=== PATIENT | male | born 1935 | race Caucasian/White ===

== ENCOUNTER → 2017-02-08 | Outpatient (CLI) | payer MEDICARE ==
[~2017-02-08] MED LIST: ADVA250A INH; BALANCED SALT SOLN OPHT IRRIG 15 ML BTL ONE; CENTTAB PO; FLUT1SPR5 EACH NARE; NEXI40CA PO; PHENYLEPHRINE HCL 2.5% OPTH SOLN 2 ML BTL ONE; PROPARACAINE HCL 0.5% OPHT SOLN 15 ML BTL ONE; SYSTSOL15 EACH EYE; TROPICAMIDE 1% OPHT SOLN 15 ML BTL ONE; VENTAER INH; ZOCO20TA PO
== END ==
LOC: PHSDC 07:57
PROVIDERS: ATTEND Ophthalmology
DX: H26.492 Other secondary cataract, left eye (principal)

== ENCOUNTER 2017-07-01 04:13 | Emergency (ER) | payer MEDICARE ==
[~2017-07-01] VITALS: Ht 182.9 cm; Wt 91.0 kg
[~2017-07-01 04:13] MED LIST changes: -BALANCED SALT SOLN OPHT IRRIG 15 ML BTL ONE; -PHENYLEPHRINE HCL 2.5% OPTH SOLN 2 ML BTL ONE; -PROPARACAINE HCL 0.5% OPHT SOLN 15 ML BTL ONE; -TROPICAMIDE 1% OPHT SOLN 15 ML BTL ONE
[2017-07-01 04:20] VITALS: BP 160/90; PULSE 93; RESP 20; TEMP 98.7; O2SAT 97
[2017-07-01] MEDS ORDERED: HYDR12.56 PO (04:30)
[2017-07-01] MEDS ORDERED: TEMA30CA PO (04:30)
[2017-07-01] MEDS ORDERED: SODIUM CHLORIDE 0.9% FLUSH 10 ML FLUSH IVF PRN (04:45)
[2017-07-01] MEDS ORDERED: ASPIRIN 81 MG CHEW TAB PO ONE (04:45)
--- NOTE | 2017-07-01 04:45 | PD ---
HPI Chief Complaint: General Weakness Time Seen by Provider: 04:40 Travel History International Travel<30 days: No Contact w/Intl Traveler<30days: No Traveled to known affect area: No History of Present Illness HPI 82-year-old male presents to the emergency department by EMS transport from home for evaluation of generalized weakness with diaphoresis and nausea and feeling his heart pounding. According the patient and he is in good health he occasionally takes HCTZ for swelling of his right ankle was previously on amlodipine for high blood pressure but no other takes amlodipine and has had previous hernia repair appendectomy and rhinoplasty as well as occasionally uses an inhaler for asthma and review of records identify he was on Zocor before but is otherwise in good health. Patient does not smoke cigarettes occasionally drinks alcohol. Patient's had no recent illness and no recent fever. Patient states he went to bed feeling well last night and then awakened approximate 2 hours ago with a warm sweat with mild nausea and feeling like his heart was pounding. EMS was called and according to the machine buffer he was in atrial fibrillation with a rapid ventricular response rate of 170 bpm but prior to administration of any medication he converted back to sinus rhythm with PVC' s. Patient states he feels well at this time has never experienced an attack like this before. Patient denies having any cardiac disease. Patient also denies dyslipidemia or diabetes. Patient states that he did not have near passing out or passing out with this event. Patient is followed by Dr. Bonilla. Patient's never had a stress test. 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) Psychiatric: No Reproductive: No Respiratory: Yes (ASTHMA- HX) Thyroid Disease: No Tetanus Vaccination: < 5 Years Past Surgical History Abdominal Surgery: Yes (APPENDECTOMY- RIGHT INGUINAL HERNIA REPAIR) Appendectomy: Yes Body Medical Devices: NONE Cardiac Surgery: No Ear Surgery: No Endocrine Surgery: No Eye Surgery: Yes (LEFT CATARACT) Genitourinary Surgery: No Joint Replacement: No Oral Surgery: Yes (T&A; SINUS SX) Pacemaker: No Thoracic Surgery: No Tonsillectomy: Yes Other Surgery: Yes Social History Alcohol Use: Yes (OCC) Tobacco Use: No Substance Use: No Allergies-Medications (Allergen,Severity, Reaction): Coded Allergies: No Known Allergies (Unverified , 02/14/17) Reported Meds & Prescriptions Reported Meds & Active Scripts Active Cardizem CD 24 HR (Diltiazem CD 24 HR) 240 Mg Caper 240 Mg PO DAILY Eliquis (Apixaban) 5 Mg Tab 5 Mg PO BID Reported Hydrochlorothiazide 12.5 Mg Tab 12.5 Mg PO DAILY Temazepam 30 Mg Cap 30 Mg PO HS PRN Systane Balance Anabaptist Opth Drops (Propylene Glycol Opth Drops) 0.6% Soln 1 Drop EACH EYE PRN PRN Flonase Nasal Elysian (Fluticasone Nasal Elysian) 50 Mcg/Act Elysian 1 Elysian EACH NARE PRN Advair Diskus Inh (Fluticasone-Salmeterol Inh) 250-50 Mcg/Blist Aer 1 Puff INH PRN Rinse mouth after use. Ventolin Hfa 18 GM Inh (Albuterol Sulfate) 90 Mcg/Act Aer 1 Puff INH PRN PRN Zocor (Simvastatin) 20 Mg Tab 20 Mg PO DAILY Nexium (Esomeprazole DR) 40 Mg Capdr 40 Mg PO DAILY Review of Systems Except as stated in HPI: all other systems reviewed are Neg Physical Exam Narrative GENERAL: Well-developed well-nourished male in no acute distress no respiratory distress SKIN: Warm and dry. HEAD: Normocephalic. EYES: No scleral icterus. No injection or drainage. NECK: Supple, trachea midline. No JVD or lymphadenopathy. CARDIOVASCULAR: Regular rate and rhythm without murmurs, gallops, or rubs. RESPIRATORY: Breath sounds equal bilaterally. No accessory muscle use. GASTROINTESTINAL: Abdomen soft, non-tender, nondistended. MUSCULOSKELETAL: No cyanosis, or edema. BACK: Nontender without obvious deformity. No CVA tenderness. Data Data Last Documented VS Vital Signs Date Time Temp Pulse Resp B/P (MAP) Pulse Ox O2 Delivery O2 Flow Rate FiO2 07/01/17 09:47 07/01/17 06:35 67 18 96 Room Air 07/01/17 04:26 2.00 07/01/17 04:20 98.7 Orders Orders Electrocardiogram (07/01/17 04:40) Basic Metabolic Panel (Bmp) (07/01/17 04:40) Ckmb (Isoenzyme) Profile (07/01/17 04:40) Complete Blood Count With Diff (07/01/17 04:40) Magnesium (Mg) (07/01/17 04:40) Prothrombin Time / Inr (Pt) (07/01/17 04:40) Act Partial Throm Time (Ptt) (07/01/17 04:40) Troponin I (07/01/17 04:40) Chest, Single Ap (07/01/17 04:40) Ecg Monitoring (07/01/17 04:40) Bilateral Bp Monitoring (07/01/17 04:40) Iv Access Insert/Monitor (07/01/17 04:40) Oximetry (07/01/17 04:40) Oxygen Administration (07/01/17 04:40) Aspirin Chew (Aspirin Chew) (07/01/17 04:45) Sodium Chloride 0.9% Flush (Ns Flush) (07/01/17 04:45) Ct Thorax/ Chest W Iv Contrast (07/01/17 ) Iohexol 350 Inj (Omnipaque 350 Inj) (07/01/17 08:03) Labs Laboratory Tests Test 07/01/17 04:50 White Blood Count 6.3 TH/MM3 Red Blood Count 4.60 MIL/MM3 Hemoglobin 14.5 GM/DL Hematocrit 43.2 % Mean Corpuscular Volume 93.9 FL Mean Corpuscular Hemoglobin 31.6 PG Mean Corpuscular Hemoglobin Concent 33.6 % Red Cell Distribution Width 13.8 % Platelet Count 154 TH/MM3 Mean Platelet Volume 10.2 FL Neutrophils (%) (Auto) 53.1 % Lymphocytes (%) (Auto) 35.9 % Monocytes (%) (Auto) 6.5 % Eosinophils (%) (Auto) 3.7 % Basophils (%) (Auto) 0.8 % Neutrophils # (Auto) 3.4 TH/MM3 Lymphocytes # (Auto) 2.3 TH/MM3 Monocytes # (Auto) 0.4 TH/MM3 Eosinophils # (Auto) 0.2 TH/MM3 Basophils # (Auto) 0.0 TH/MM3 CBC Comment DIFF FINAL Differential Comment Prothrombin Time 10.8 SEC Prothromb Time International Ratio 1.0 RATIO Activated Partial Thromboplast Time 26.6 SEC Blood Urea Nitrogen 14 MG/DL Creatinine 1.02 MG/DL Random Glucose 105 MG/DL Calcium Level 9.0 MG/DL Magnesium Level 2.2 MG/DL Sodium Level 144 MEQ/L Potassium Level 3.6 MEQ/L Chloride Level 109 MEQ/L Carbon Dioxide Level 30.1 MEQ/L Anion Gap 5 MEQ/L Estimat Glomerular Filtration Rate 70 ML/MIN Total Creatine Kinase 53 U/L Troponin I 0.02 NG/ML MDM Medical Decision Making Medical Screen Exam Complete: Yes Emergency Medical Condition: Yes Medical Record Reviewed: Yes Interpretation(s) EKG sinus rhythm with frequent PVCs no acute ST segment elevation or injury pattern rate 90 Last Impressions Chest X-Ray 07/01/17 0440 Signed Impressions: Service Date/Time: Monday, July 01, 2017 04:49 - CONCLUSION: Elevation of the left hemidiaphragm and parenchymal opacity in the left lower lung. Recommend further characterization with contrast-enhanced CT thorax. Danny Pratt MD CBC & BMP Diagram 07/01/17 04:50 Calcium Level 9.0, Magnesium Level 2.2 Troponin I 0.02, not elevated; CK 53, not elevated Differential Diagnosis Arrhythmia, electronic disturbance, ACS, [place] Narrative Course patient placed on quality assurance monitor body IV access obtained specimens collected and sent for resulting patient administered aspirin 162 mg Patient remains asymptomatic in the emergency department rare PVCs have decreased in frequency Patient identified to have reported episode of atrial fibrillation paroxysmal without recurrence the emergency department patient is otherwise stable for outpatient management we'll discuss with on-call cardiology initiated patient on calcium channel chele and blood thinning agent Patient identified by chest x-ray to have area of concern for parenchymal opacity left lower lobe with recommendation for CT to be performed Patient's case discussed with on-call cardiology recommends starting patient on Cardizem 240 mg daily and Eliquis In view of recommendation for CT prescriptions have been written for Cardizem and Eliquis; CT has been ordered and follow-up of results by oncoming physician and then patient disposition subsequently care signed over to Dr Hickey Physician Communication Physician Communication call placed to cardiology Diagnosis Primary Impression: Paroxysmal atrial fibrillation Additional Impression: PVCs (premature ventricular contractions) Scripts Diltiazem CD 24 HR (Cardizem CD 24 HR) 240 Mg Caper 240 MG PO DAILY, #30 CAP 0 Refills Prov: Yamileth Mora MD 07/01/17 Apixaban (Eliquis) 5 Mg Tab 5 MG PO BID for Blood Clot Prevention, #60 TAB 0 Refills Prov: Yamileth Mora MD 07/01/17 Yamileth Mora MD Jul 01, 2017 04:45
--- NOTE | 2017-07-01 05:04 | RADRPT ---
EXAM DATE/TIME: 07/01/2017 04:49 [facility] COMPARISON: No previous studies available for comparison. INDICATIONS : Chest pain and weakness MEDICAL HISTORY : None. SURGICAL HISTORY : None. ENCOUNTER: Initial ACUITY: 1 day PAIN SCORE: 6/10 LOCATION: Bilateral chest FINDINGS: There is elevation of the left hemidiaphragm and hazy opacity in the left lower lung. The right lung is clear. The heart is normal size. No blunting of the costophrenic angles. CONCLUSION: Elevation of the left hemidiaphragm and parenchymal opacity in the left lower lung. Recommend furthe r characterization with contrast-enhanced CT thorax. Danny Pratt MD on July 01, 2017 at 5:01 Board Certified Radiologist. This report was verified electronically.
[2017-07-01 05:13] LABS: BICARBONATE 30.1 MEQ/L (21.0-32.0); MAGNESIUM 2.2 MG/DL (1.5-2.5); POTASSIUM 3.6 MEQ/L (3.5-5.1)
[2017-07-01 05:15] LABS: APTT (PATIENT) 26.6 SEC (24.3-30.1); PROTHROMBIN TIME - PATIENT 10.8 SEC (9.8-11.6)
[2017-07-01 05:16] LABS: AUTOMATED NEUTROPHIL # 3.4 TH/MM3 (1.8-7.7); BASOPHIL % 0.8 % (0.0-2.0); EOSINOPHIL # 0.2 TH/MM3 (0-0.4); EOSINOPHIL % 3.7 % (0.0-4.0); HEMATOCRIT 43.2 % (39.0-51.0); HEMO FLAGS DIFF FINAL; LYMPH % 35.9 % (9.0-44.0); LYMPHOCYTE # 2.3 TH/MM3 (1.0-4.8); MEAN CELL VOLUME 93.9 FL (80.0-100.0); MEAN CORPUSCULAR HEMOGLOBIN 31.6 PG (27.0-34.0); MEAN CORPUSCULAR HGB CONC 33.6 % (32.0-36.0); MONO % 6.5 % (0.0-8.0); NEUT % 53.1 % (16.0-70.0); PLATELET COUNT 154 TH/MM3 (150-450); RED CELL DISTRIBUTION WIDTH 13.8 % (11.6-17.2); WHITE BLOOD COUNT 6.3 TH/MM3 (4.0-11.0)
[2017-07-01 06:35] VITALS: BP_SYST 143; BP_SYST 146; BP_DIAS 69; BP_DIAS 70; PULSE 67; RESP 18; O2SAT 96; O2SAT 97
[2017-07-01] MEDS ORDERED: APIX5TAB PO (07:45)
[2017-07-01] MEDS ORDERED: CARD240C6 PO (07:46)
[2017-07-01] MEDS ORDERED: IOHEXOL 350 MG/ML 10 ML VIAL (for RAD DIAG) IV PUSH ONE (08:03)
--- NOTE | 2017-07-01 08:20 | RADRPT ---
EXAM DATE/TIME: 07/01/2017 07:54 [facility] COMPARISON: CHEST SINGLE AP, July 01, 2017, 4:49. INDICATIONS : General weakness and nausea today. IV CONTRAST: 70 cc Omnipaque 350 (iohexol) IV RADIATION DOSE: 5.3 CTDIvol (mGy) MEDICAL HISTORY : Hypertension. Gastroesophageal reflux disease. Carcinoma, basal cell. SURGICAL HISTORY : Tonsillectomy. ENCOUNTER: Initial ACUITY: 1 day PAIN SCALE: 0/10 LOCATION: Bilateral chest TECHNIQUE: Volumetric scanning of the chest was performed. Using automated exposure control and adjustment of t he mA and/or kV according to patient size, radiation dose was kept as low as reasonably achievable to obtain optimal diagnostic quality images. DICOM format image data is available electronically for review and comparison. Follow-up recommendations for detected pulmonary nodules are based at a minimum on nodule size and pa tient risk factors according to Fleischner Society Guidelines. FINDINGS: LUNGS: There is no consolidation or pneumothorax. No concerning pulmonary nodule is visualized. There is a linear opacity in the left lower lobe superior to the elevated left hemidiaphragm. The appearance is characteristic of subsegmental atelectasis. PLEURA: There is no pleural thickening or pleural effusion. MEDIASTINUM: The heart and great vessels demonstrate no acute abnormality. There is coronary artery calcification . There is no mediastinal or hilar lymphadenopathy. AXILLAE: Within normal limits. No lymphadenopathy. SKELETAL: There are degenerative changes of the thoracic spine. MISCELLANEOUS: The visualized upper abdominal organs demonstrate no acute abnormality. Calcified stones are present in the gallbladder. CONCLUSION: 1. The chest x-ray finding represents subsegmental atelectasis in the left lower lobe adjacent to the mildly elevated left hemidiaphragm. Otherwise, no acute pulmonary abnormality is visualized. 2. Nonacute findings include coronary artery calcification and cholelithiasis. Zane Jj MD on July 01, 2017 at 8:15 Board Certified Radiologist. This report was verified electronically.
--- NOTE | 2017-07-01 08:30 | PD ---
Physical Exam Date Seen by Provider: Jul 01, 2017 Time Seen by Provider: 08:27 Narrative 82-year-old male came to the emergency room with history of generalized weakness which was following and episode of sudden onset palpitation and diaphoresis. This was a 5 in the morning. He called EMS and they found him in atrial fibrillation with RVR which converted back to normal sinus rhythm once today were ready to load him up in the ambulance. Patient was seen by the previous ER physician. Please refer to her history and physical for further details. She spoke with the receptionist doctor's office and the plan was to discharge him home with Regino and Ama. However the chest x-ray was read by the radiologist as some possible density in the left lower lobe and a CAT scan was recommended. The sign out to me was to follow-up on the CAT scan report. It is back and it supported as atelectasis in the left lower segment. Otherwise negative. Given that at this point I will discharge him home as per the strong feeling of the previous ER physician that patient could go home. Data Data Last Documented VS Orders Orders Electrocardiogram (07/01/17 04:40) Basic Metabolic Panel (Bmp) (07/01/17 04:40) Ckmb (Isoenzyme) Profile (07/01/17 04:40) Complete Blood Count With Diff (07/01/17 04:40) Magnesium (Mg) (07/01/17 04:40) Prothrombin Time / Inr (Pt) (07/01/17 04:40) Act Partial Throm Time (Ptt) (07/01/17 04:40) Troponin I (07/01/17 04:40) Chest, Single Ap (07/01/17 04:40) Ecg Monitoring (07/01/17 04:40) Bilateral Bp Monitoring (07/01/17 04:40) Iv Access Insert/Monitor (07/01/17 04:40) Oximetry (07/01/17 04:40) Oxygen Administration (07/01/17 04:40) Aspirin Chew (Aspirin Chew) (07/01/17 04:45) Sodium Chloride 0.9% Flush (Ns Flush) (07/01/17 04:45) Ct Thorax/ Chest W Iv Contrast (07/01/17 ) Iohexol 350 Inj (Omnipaque 350 Inj) (07/01/17 08:03) Labs Laboratory Tests Test 07/01/17 04:50 White Blood Count 6.3 TH/MM3 Red Blood Count 4.60 MIL/MM3 Hemoglobin 14.5 GM/DL Hematocrit 43.2 % Mean Corpuscular Volume 93.9 FL Mean Corpuscular Hemoglobin 31.6 PG Mean Corpuscular Hemoglobin Concent 33.6 % Red Cell Distribution Width 13.8 % Platelet Count 154 TH/MM3 Mean Platelet Volume 10.2 FL Neutrophils (%) (Auto) 53.1 % Lymphocytes (%) (Auto) 35.9 % Monocytes (%) (Auto) 6.5 % Eosinophils (%) (Auto) 3.7 % Basophils (%) (Auto) 0.8 % Neutrophils # (Auto) 3.4 TH/MM3 Lymphocytes # (Auto) 2.3 TH/MM3 Monocytes # (Auto) 0.4 TH/MM3 Eosinophils # (Auto) 0.2 TH/MM3 Basophils # (Auto) 0.0 TH/MM3 CBC Comment DIFF FINAL Differential Comment Prothrombin Time 10.8 SEC Prothromb Time International Ratio 1.0 RATIO Activated Partial Thromboplast Time 26.6 SEC Blood Urea Nitrogen 14 MG/DL Creatinine 1.02 MG/DL Random Glucose 105 MG/DL Calcium Level 9.0 MG/DL Magnesium Level 2.2 MG/DL Sodium Level 144 MEQ/L Potassium Level 3.6 MEQ/L Chloride Level 109 MEQ/L Carbon Dioxide Level 30.1 MEQ/L Anion Gap 5 MEQ/L Estimat Glomerular Filtration Rate 70 ML/MIN Total Creatine Kinase 53 U/L Troponin I 0.02 NG/ML MDM Supervised Visit with KATHI: No Diagnosis Primary Impression: Paroxysmal atrial fibrillation Referrals: Alex Agudelo MD 3 days Additional Instruction: Please call the receptionist doctor's office's office was name and number been provided to you. Follow-up with them regarding this new condition. Take the medication as per the prescription direction. One of them is a blood thinner and hence he have to be cautious especially with falls. Return to the ER if the condition worsens or any other new concerns. Scripts Diltiazem CD 24 HR (Cardizem CD 24 HR) 240 Mg Caper 240 MG PO DAILY, #30 CAP 0 Refills Prov: Yamileth Mora MD 07/01/17 Apixaban (Eliquis) 5 Mg Tab 5 MG PO BID for Blood Clot Prevention, #60 TAB 0 Refills Prov: Yamileth Mora MD 07/01/17 Disposition: 01 DISCHARGE HOME Condition: Stable Mike Hickey MD Jul 01, 2017 08:30
--- NOTE | 2017-07-01 16:34 | EKG ---
Date Performed: 07/01/2017 Time Performed: 04:22:49 PTAGE: 82 years EKG: Sinus rhythm WITH FREQUENT VENTRICULAR PREMATURE COMPLEXES Compared to previous tracing, the PVCs are new ABNORMA L RHYTHM ECG PREVIOUS TRACING : 03/04/2014 13.53 DOCTOR: Prabhu Pennington Interpretating Date/Time 07/01/2017 16:34:19
== END 2017-07-01 09:47 | disposition home or self-care (01) ==
LOC: NEPC 04:13
DX: I48.0 Paroxysmal atrial fibrillation (principal); I49.3 Ventricular premature depolarization
CPT/HCPCS: 71010; 71260; 80048; 82550; 83735; 84484; 85025; 85610; 85730; 93005; 99285; Q9967

== ENCOUNTER 2017-08-02 06:30 | Day surgery (SDC) | payer MEDICARE ==
[~2017-08-02] VITALS: Ht 182.9 cm; Wt 88.5 kg
[~2017-08-02 06:30] MED LIST changes: +APIX5TAB PO; +CARD240C6 PO; -CENTTAB PO; +HYDR12.56 PO; +TEMA30CA PO
[2017-08-02] MEDS ORDERED: NS 1000P @30 MLS/HR (KVO) IV SCH (07:15)
[2017-08-02] MEDS ORDERED: ASPIRIN 325 MG TAB PO SCH (07:15)
[2017-08-02] MEDS ORDERED: DILT0.05 PO (07:36)
[2017-08-02] MEDS ORDERED: GABA300C5 PO (07:36)
[2017-08-02] MEDS ORDERED: APIX5TAB PO (07:36)
[2017-08-02 07:41] LABS: AUTOMATED NEUTROPHIL # 3.9 TH/MM3 (1.8-7.7); BASOPHIL % 0.5 % (0.0-2.0); EOSINOPHIL # 0.3 TH/MM3 (0-0.4); EOSINOPHIL % 4.4 % (0.0-4.0); HEMATOCRIT 41.9 % (39.0-51.0); HEMOGLOBIN 14.1 GM/DL (13.0-17.0); MEAN CORPUSCULAR HEMOGLOBIN 31.3 PG (27.0-34.0); MEAN CORPUSCULAR HGB CONC 33.6 % (32.0-36.0); MEAN PLATELET VOLUME 10.3 FL (7.0-11.0); MONOCYTE # 0.5 TH/MM3 (0-0.9); NEUT % 58.1 % (16.0-70.0); PLATELET COUNT 168 TH/MM3 (150-450); RED BLOOD COUNT 4.51 MIL/MM3 (4.50-5.90); RED CELL DISTRIBUTION WIDTH 13.6 % (11.6-17.2); WHITE BLOOD COUNT 6.7 TH/MM3 (4.0-11.0)
[2017-08-02 07:54] LABS: INTERNATIONAL NORMALIZED RATIO 1.1 RATIO
[2017-08-02 07:56] LABS: BICARBONATE 26.8 MEQ/L (21.0-32.0); CALCIUM 8.9 MG/DL (8.5-10.1); CREATININE 0.94 MG/DL (0.60-1.30)
== END 2017-08-02 07:27 | disposition home or self-care (01) ==
LOC: HDOC 06:30 → HDIC 06:30 → HDOC 07:27
PROVIDERS: ATTEND Internal Medicine Cardiovascular Disease
DX: I25.10 Atherosclerotic heart disease of native coronary artery without angina pectoris (principal); I48.91 Unspecified atrial fibrillation; I10 Essential (primary) hypertension; Z53.9 Procedure and treatment not carried out, unspecified reason
CPT/HCPCS: 80048; 85025; 85610; 85730; G0463; J7030; 99211

== ENCOUNTER 2017-08-08 05:41 | Day surgery (SDC) | payer MEDICARE ==
[~2017-08-08] VITALS: Ht 182.9 cm; Wt 88.3 kg
[~2017-08-08 05:41] MED LIST changes: -CARD240C6 PO; +DILT0.05 PO; +GABA300C5 PO; -SYSTSOL15 EACH EYE
[2017-08-08] MEDS ORDERED: IOHEXOL 350 MG/ML 100 ML BTL (for Cath Lab) OTHER ONE (05:42)
[2017-08-08] MEDS ORDERED: ASPIRIN 325 MG TAB PO SCH (06:00)
[2017-08-08] MEDS ORDERED: NS 1000P @30 MLS/HR (KVO) IV SCH (06:00)
[2017-08-08] MEDS ORDERED: ISOS30TA3 PO (06:02)
[2017-08-08] MEDS ORDERED: TRIAM.1%T TOPICAL (06:02)
[2017-08-08 06:19] VITALS: BP 148/77; PULSE 66; RESP 18; TEMP 97.8; O2SAT 96
[2017-08-08 06:35] LABS: AUTOMATED NEUTROPHIL # 3.9 TH/MM3 (1.8-7.7); BASOPHIL % 0.6 % (0.0-2.0); EOSINOPHIL # 0.3 TH/MM3 (0-0.4); EOSINOPHIL % 4.4 % (0.0-4.0); HEMATOCRIT 41.6 % (39.0-51.0); HEMOGLOBIN 14.1 GM/DL (13.0-17.0); LYMPH % 32.1 % (9.0-44.0); LYMPHOCYTE # 2.2 TH/MM3 (1.0-4.8); MEAN CORPUSCULAR HEMOGLOBIN 31.8 PG (27.0-34.0); MEAN CORPUSCULAR HGB CONC 33.8 % (32.0-36.0); MEAN PLATELET VOLUME 10.6 FL (7.0-11.0); MONO % 6.8 % (0.0-8.0); MONOCYTE # 0.5 TH/MM3 (0-0.9); NEUT % 56.1 % (16.0-70.0); PLATELET COUNT 172 TH/MM3 (150-450); RED BLOOD COUNT 4.43 MIL/MM3 (4.50-5.90); RED CELL DISTRIBUTION WIDTH 13.5 % (11.6-17.2); WHITE BLOOD COUNT 6.9 TH/MM3 (4.0-11.0)
[2017-08-08 06:46] LABS: PROTHROMBIN TIME - PATIENT 11.3 SEC (9.8-11.6)
[2017-08-08 06:50] LABS: BICARBONATE 25.9 MEQ/L (21.0-32.0); CALCIUM 8.7 MG/DL (8.5-10.1); CREATININE 0.96 MG/DL (0.60-1.30)
[2017-08-08] MEDS ORDERED: MIDAZOLAM HCL 2 MG/2 ML VIAL ONE (07:19)
--- NOTE | 2017-08-08 08:18 | CATHPROC ---
[employer] HIS Report Study Information Study Number Admission Scheduled Start Study Start [id number] Aug 08 2017 5:41AM 08/08/2017 Aug 08 2017 7:14AM [place] Service Cardiac Catheterization Admit Source Facility Department Other [facility] - [employer] Architect Physician and Clinical Staff Initial Dank Soto Hot Stick Man Mildred Albarran,LORENZA Other cathlab, cathlab Recorder Kenny Wang RCIS(BS) ScrMinal Hernandez RCIS TECH2 Procedures Performed Procedure Location (Site) Vessel Name Angiogram LV LV Ventricle Coronary Angiograms LCA Left Coronary L Heart Cath Equipment Time House Player Description Size Mfg Part Number Used/Scraped TRANSDUCER, TRUWAVE [id number] 07:15 GOMEZ AVELAR * Used W/STOCKCOCK *[id number] [id number] *[id number] [id number] *[id number] PIGTAIL ANG. 145 INFINITI 534-612S CATHETER *[id number] 08:06 DAIG/[employer] ANGIOSEAL, FR6 VIP FR 6 Used *[id number] 07:15 MEDLINE [employer] PACK, CCL CUSTOM * Used *[id number] 07:15 [employer]rise PACER PEN, SKIN DUAL W/ RULER * Used *[id number] 07:15 [employer] SHEATH, FR6.5 PRELUDE 11CM FR 6.5 038ACT Used *[id number] 07:15 [employer] WIRE, 3MMJ .035 180CM 180CM Used *[id number] 07:15 NAMIC MANIFOLD, 4 PORT * Used *[id number] 07:15 NYCOMED OMNIPAQUE, 350 MG, 100ML 100ML [id number] Used 07:53 NYCOMED OMNIPAQUE, 350 MG, 50ML 50ML [id number] Used [id number] 07:15 [employer] MEDICAL BLANKET,WARM AIR CCL * Used *[id number] History: Current Medications Medication Dosage/Unit Route Frequency Last Date/Time Taken Statins (any) ASA History: Allergies Allergy Reaction No Known Allergies History: Risk Factors Family History of Hypertension Dyslipidemia Previous NE Previous Heart Failure Premature CAD Yes Yes No No No Prior Valve Prior PCI Prior CABG Surgery No No No Cerebrovascular Peripheral Artery Chronic Lung On Dialysis Diabetes Disease Disease Disease No No No Yes No History: Symptoms/Diagnosis Selection Items Chest pain History: Stress Tests Stress or Imaging Studies Performed No History: Other Disease Selection Items HTN History: Other Current Smoker No Labs Hgb (g/dl) Hct (%) WBC (l/cumm) Platelets (thousands) 11.60-17.00 35.00-51.00 4.00-11.00 150.00-450.00 14.0 41 6.9 172 Glucose (mg/dl) BUN (mg/dl) Creatinine (mg/dl) BUN:Creatinine (1:x) 74.00-106.00 7.00-18.00 0.50-1.30 10.00-20.00 99 16 0.9 17.8 Na (meq/l) K (meq/l) 136.00-145.00 3.50-5.10 142 3.5 INR (PTT:PT) 0.90-1.10 1 CPK-MB (ng/ML) 0.50-3.60 Not Drawn Medication Medication Total Dose (Bolus/Oral) Medication Total Dosage/Unit 1% XYLOCAINE 10 mL VERSED 2 mg Medications (Bolus/Oral) Medication Time Given Dosage/Unit Administered By Reason VERSED 08/08/2017 7:45:12 AM 2 mg Mildred Albarran 2 mg VERSED given in lab by Mildred Albarran RN in Left Forearm via Peripheral IV. Ordered by Dank Rankin. 1% XYLOCAINE 08/08/2017 7:47:08 AM 10 mL Mildred Albarran 10 mL 1% XYLOCAINE given in lab by Mildred Albarran RN in Right Groin via Subcutaneous. Ordered by Dank Aquino. Medication (Drip) Medication Time Given Dosage/Unit Concentration/Unit Diluent (ml) Solution IV Solutions 08/08/2017 7:14:06 AM 0 mL (IV) 500 NaCl .9 Patient arrived on IV Solutions given by cathlab, cathkevin in Left Forearm via Peripheral IV. Pump/Dri p Flow = 20 ml/hr using NaCl .9. Ordered by Dank Rankin. Initial Case Assessment Cardiovascular HR Rhythm Chest Pain 58 nsr 0 Edema Present Skin color Skin None Normal Warm Dry Circulatory - Right Pulses Dorsalis Pedis Femoral 2 2 Scale (0,1,2,3,4,d) Circulatory - Left Pulses Dorsalis Pedis Femoral 2 2 Scale (0,1,2,3,4,d) Neurological State Oriented to time-place- Alert Moves all extremities person Respiration - General Respiration Rate SpO2 (%) (B/min) 15 96 Chronological Log Time Study Chronological Log 7:13:53 Patient arrived via Bed. 7:13:54 Patient Name, D.O.B, / Armband Verified By R.N. 7:13:54 Consent signed by the physician and the patient and verified by the [employer] Architect staff. 7:13:55 Pre-op and post- op instructions given; patient acknowledges understanding of instructions . 7:13:55 Verbal Stimulation=2 Physical Stimulation=2 Airway=2 Respiration=2 TOTAL=8. (0=absent, 1=l imited, 2=present) 7:13:56 Presedation assessment performed by [employer] Architect RN. 7:13:57 Immediate Presedation assesment performed by physician. 7:13:58 Patient has been NPO for More than 6Hrs. 7:13:58 Skin Breakdown- none per patient 7:14:00 Patient Warmer Placed on the Table. 7:14:01 Disposable Defibrillator Pads Placed On Patient. 7:14:05 [place] Prominences Protected 7:14:06 A # 20 IV was noted in the Forearm (left). Grade = 0 Patient arrived on IV Solutions given by cathlab cathlab in Left Forearm via Peripheral IV. Pum p/Drip Flow = 20 ml/hr 7:14:06 using NaCl .9. Ordered by Dank Rankin. 7:14:07 History and physical on the chart or being dictated. Vitals capture started with the following parameters, Patient=Adult, Interval=5 min, Initial Pre kqtzk=956 mmHg, 7:19:44 Deflation Rate=5 mmHg, Cuff placed on Right Arm Assessment: Initial Case, HR=58 BPM, Rhythm=nsr, Chest Pain=0, Edema=None, Color=Normal, Skin = Warm, Dry Right Pulses: Jaylen Ped=2, Femoral=2 7:19:45 Left Pulses: Jaylen Ped=2, Femoral=2 Neurological: State=Alert, Ox3, OTOOLE Respiration: Resp=15 B/min, SpO2=96 % 7:19:57 Reference ECG taken 7:20:23 HR=58 bpm, PKQX=140/68 mmhg, SpO2=96.0 %, Resp=17 B/min, Pain=0, Claritza=10, Mckeon=2 7:25:20 HR=59 bpm, UASM=043/70 mmhg, SpO2=97.0 %, Resp=16 B/min, Pain=0, Claritza=10, Mckeon=2 7:25:24 Right groin prepped with 2% chlorhexidine, and draped after a 3 min. waiting time. 7:29:12 MD paged 7:30:21 HR=55 bpm, LHYD=794/68 mmhg, SpO2=97.0 %, Resp=14 B/min, Pain=0, Claritza=10, Mckeon=2 7:30:54 Pressure channel 1 zeroed. 7:35:20 HR=54 bpm, RXCL=682/66 mmhg, SpO2=96.0 %, Resp=12 B/min, Pain=0, Claritza=10, Mckeon=2 7:38:37 MD arrived. 7:38:44 Contrast Scanned 7:38:45 Immediate Presedation assesment performed by physician. 7:40:19 HR=56 bpm, ZRRS=426/69 mmhg, SpO2=96.0 %, Resp=14 B/min, Pain=0, Claritza=10, Mckeon=2 Time Out. Correct patient, correct procedure, correct physician, power injector loaded with cont rast with surgical team 7:44:28 present. Time Out Concurred by MD and individual staff in procedure. 7:45:12 2 mg VERSED given in lab by Mildred Albarran, RN in Left Forearm via Peripheral IV. Ordered by Dank Rankin. 7:45:18 HR=64 bpm, PJZW=816/76 mmhg, SpO2=97.0 %, Resp=8 B/min, Pain=0, Claritza=10, Mckeon=2 7:45:32 Case Start 7:45:35 Verbal Stimulation=2 Physical Stimulation=2 Airway=2 Respiration=2 TOTAL=8. (0=absent, 1=opzo ited, 2=present) 10 mL 1% XYLOCAINE given in lab by Mildred Albarran, RN in Right Groin via Subcutaneous. Ordered by Chucho 7:47:08 Dank. 7:50:09 Access site was Right Femoral Artery. 7:50:14 A SHEATH, FR6.5 PRELUDE 11CM FR 6.5 was advanced into the Fem Art (right) using the Percutan eous technique. A PIGTAIL ANG. 145 INFINITI CATHETER FR 6 was advanced over a wire. OMNIPAQUE, 350 MG, 100ML 100 ML was 7:50:19 used for injections. 7:50:23 HR=56 bpm, EWUI=927/65 mmhg, SpO2=95.0 %, Resp=17 B/min, Pain=0, Claritza=10, Mckeon=2 Recorded Pressure: LV, HR=53, Condition=Condition 1 7:52:23 (Left Ventricle) LV 104/2/9 7:52:38 The LV was injected at 10 cc/sec for a total of 30. OMNIPAQUE, 350 MG, 50ML 50ML used. Recorded Pressure: LV, Ao, HR=57, Condition=Condition 1 7:53:46 (Left Ventricle) LV 100/4/11, (Aorta) Ao 105/53/74 7:54:08 Catheter was removed A JL 5.0 INFINITI CATHETER FR 6 was advanced over a wire. OMNIPAQUE, 350 MG, 100ML 100ML was use d for 7:54:08 injections. 7:55:20 HR=54 bpm, GOJW=612/62 mmhg, SpO2=95.0 %, Resp=15 B/min, Pain=0, Claritza=10, Mckeon=2 Recorded Pressure: Ao, HR=54, Condition=Condition 1 7:56:04 (Aorta) Ao 103/51/71 7:56:41 The LCA was injected and visualized at various angles. OMNIPAQUE, 350 MG, 100ML 100ML used. 7:59:22 Catheter was removed A 3DRC INFINITI CATHETER FR 6 was advanced over a wire. OMNIPAQUE, 350 MG, 100ML 100ML was use d for 7:59:23 injections. 8:00:23 HR=51 bpm, ZYOV=266/61 mmhg, SpO2=96.0 %, Resp=15 B/min, Pain=0, Claritza=10, Mckeon=2 8:02:56 Catheter was removed 8:03:21 An injection in the Fem Art (right) was made through the SHEATH, FR6.5 PRELUDE 11CM FR 6.5 . 8:05:22 HR=58 bpm, NVBT=950/63 mmhg, SpO2=98.0 %, Resp=12 B/min, Pain=0, Claritza=10, Mckeon=2 8:06:10 ANGIOSEAL, FR6 VIP FR 6 placement in the Fem Art (right) 8:06:16 Case End 8:06:18 Sterile dressing applied to site 8:06:18 No case complications noted. 8:06:19 Cine recording checked. 8:06:20 Bedside Report will be given. 8:06:22 Implantable Device card placed in patient's chart. 8:06:23 Contrast Scanned 8:06:24 Verbal Stimulation=2 Physical Stimulation=2 Airway=2 Respiration=2 TOTAL=8. (0=absent, 1=l imited, 2=present) 8:06:33 A Left Heart Cath was performed. 8:09:19 Vitals capture stopped. 8:12:02 Patient moved to stretcher End Study - Contrast Media Used In Study Contrast Total Opened (mL) Total Used (mL) Total Wasted (mL) Omnipaque 100 100 0 End Study - Maximum Contrast Load Max Contrast Load (mL) 490.7 End Study - Radiation Exposure Fluoro Time (minutes) 2.3 End Study - Patient Disposition Complications Transferred To Interventional Outcome No [employer] Architect Holding No attempt made
--- NOTE | 2017-08-08 08:18 | CATHPROC ---
[employer] HIS Report Study Information Study Number Admission Scheduled Start Study Start [id number] Aug 08 2017 5:41AM 08/08/2017 Aug 08 2017 7:14AM [place] Service Cardiac Catheterization Admit Source Facility Department Other [facility] - It Generalist Physician and Clinical Staff Initial Dank Soto Tax Accountant Mildred Albarran,LORENZA Other cathlab, cathlab Recorder Kenny Wang RCIS(BS) ScrMinal Hernandez RCIS TECH2 Procedures Performed Procedure Location (Site) Vessel Name Angiogram LV LV Ventricle Coronary Angiograms LCA Left Coronary L Heart Cath Equipment Time Interior Assemblies Developer Prover Description Size Mfg Part Number Used/Scraped TRANSDUCER, TRUWAVE [id number] 07:15 GOMEZ AVELAR * Used W/STOCKCOCK *[id number] [id number] *[id number] [id number] *[id number] PIGTAIL ANG. 145 INFINITI 534-802S CATHETER *[id number] 08:06 DAIG/[employer] ANGIOSEAL, FR6 VIP FR 6 Used *[id number] 07:15 [employer] PACK, CCL CUSTOM * Used *[id number] 07:15 [employer] PACER PEN, SKIN DUAL W/ RULER * Used *[id number]-6F-11- 07:15 [employer] SHEATH, FR6.5 PRELUDE 11CM FR 6.5 038ACT Used *[id number] 07:15 [employer] WIRE, 3MMJ .035 180CM 180CM Used *[id number] 07:15 NAMIC MANIFOLD, 4 PORT * Used *[id number] 07:15 NYCOMED OMNIPAQUE, 350 MG, 100ML 100ML [id number] Used 07:53 NYCOMED OMNIPAQUE, 350 MG, 50ML 50ML [id number] Used [id number] 07:15 [employer] MEDICAL BLANKET,WARM AIR CCL * Used *[id number] History: Current Medications Medication Dosage/Unit Route Frequency Last Date/Time Taken Statins (any) ASA History: Allergies Allergy Reaction No Known Allergies History: Risk Factors Family History of Hypertension Dyslipidemia Previous [place] Previous Heart Failure Premature CAD Yes Yes No No No Prior Valve Prior PCI Prior CABG Surgery No No No Cerebrovascular Peripheral Artery Chronic Lung On Dialysis Diabetes Disease Disease Disease No No No Yes No History: Symptoms/Diagnosis Selection Items Chest pain History: Stress Tests Stress or Imaging Studies Performed No History: Other Disease Selection Items HTN History: Other Current Smoker No Labs Hgb (g/dl) Hct (%) WBC (l/cumm) Platelets (thousands) 11.60-17.00 35.00-51.00 4.00-11.00 150.00-450.00 14.0 41 6.9 172 Glucose (mg/dl) BUN (mg/dl) Creatinine (mg/dl) BUN:Creatinine (1:x) 74.00-106.00 7.00-18.00 0.50-1.30 10.00-20.00 99 16 0.9 17.8 Na (meq/l) K (meq/l) 136.00-145.00 3.50-5.10 142 3.5 INR (PTT:PT) 0.90-1.10 1 CPK-MB (ng/ML) 0.50-3.60 Not Drawn Medication Medication Total Dose (Bolus/Oral) Medication Total Dosage/Unit 1% XYLOCAINE 10 mL VERSED 2 mg Medications (Bolus/Oral) Medication Time Given Dosage/Unit Administered By Reason VERSED 08/08/2017 7:45:12 AM 2 mg Mildred Albarran 2 mg VERSED given in lab by Mildred Albarran RN in Left Forearm via Peripheral IV. Ordered by Dank Rankin. 1% XYLOCAINE 08/08/2017 7:47:08 AM 10 mL Mildred Albarran 10 mL 1% XYLOCAINE given in lab by Mildred Albarran RN in Right Groin via Subcutaneous. Ordered by Dank Aquino. Medication (Drip) Medication Time Given Dosage/Unit Concentration/Unit Diluent (ml) Solution IV Solutions 08/08/2017 7:14:06 AM 0 mL (IV) 500 NaCl .9 Patient arrived on IV Solutions given by cathlab, cathkevin in Left Forearm via Peripheral IV. Pump/Dri p Flow = 20 ml/hr using NaCl .9. Ordered by Dank Rankin. Initial Case Assessment Cardiovascular HR Rhythm Chest Pain 58 nsr 0 Edema Present Skin color Skin None Normal Warm Dry Circulatory - Right Pulses Dorsalis Pedis Femoral 2 2 Scale (0,1,2,3,4,d) Circulatory - Left Pulses Dorsalis Pedis Femoral 2 2 Scale (0,1,2,3,4,d) Neurological State Oriented to time-place- Alert Moves all extremities person Respiration - General Respiration Rate SpO2 (%) (B/min) 15 96 Chronological Log Time Study Chronological Log 7:13:53 Patient arrived via Bed. 7:13:54 Patient Name, D.O.B, / Armband Verified By R.N. 7:13:54 Consent signed by the physician and the patient and verified by the It Generalist staff. 7:13:55 Pre-op and post- op instructions given; patient acknowledges understanding of instructions . 7:13:55 Verbal Stimulation=2 Physical Stimulation=2 Airway=2 Respiration=2 TOTAL=8. (0=absent, 1=l imited, 2=present) 7:13:56 Presedation assessment performed by It Generalist RN. 7:13:57 Immediate Presedation assesment performed by physician. 7:13:58 Patient has been NPO for More than 6Hrs. 7:13:58 Skin Breakdown- none per patient 7:14:00 Patient Warmer Placed on the Table. 7:14:01 Disposable Defibrillator Pads Placed On Patient. 7:14:05 [employer] Prominences Protected 7:14:06 A # 20 IV was noted in the Forearm (left). Grade = 0 Patient arrived on IV Solutions given by cathlab cathlab in Left Forearm via Peripheral IV. Pum p/Drip Flow = 20 ml/hr 7:14:06 using NaCl .9. Ordered by Dank Rankin. 7:14:07 History and physical on the chart or being dictated. Vitals capture started with the following parameters, Patient=Adult, Interval=5 min, Initial Pre bgdrr=870 mmHg, 7:19:44 Deflation Rate=5 mmHg, Cuff placed on Right Arm Assessment: Initial Case, HR=58 BPM, Rhythm=nsr, Chest Pain=0, Edema=None, Color=Normal, Skin = Warm, Dry Right Pulses: Jaylen Ped=2, Femoral=2 7:19:45 Left Pulses: Jaylen Ped=2, Femoral=2 Neurological: State=Alert, Ox3, OTOOLE Respiration: Resp=15 B/min, SpO2=96 % 7:19:57 Reference ECG taken 7:20:23 HR=58 bpm, FFAZ=921/68 mmhg, SpO2=96.0 %, Resp=17 B/min, Pain=0, Claritza=10, Mckeon=2 7:25:20 HR=59 bpm, ALEK=223/70 mmhg, SpO2=97.0 %, Resp=16 B/min, Pain=0, Claritza=10, Mckeon=2 7:25:24 Right groin prepped with 2% chlorhexidine, and draped after a 3 min. waiting time. 7:29:12 MD paged 7:30:21 HR=55 bpm, ASJU=749/68 mmhg, SpO2=97.0 %, Resp=14 B/min, Pain=0, Claritza=10, Mckeon=2 7:30:54 Pressure channel 1 zeroed. 7:35:20 HR=54 bpm, CJXI=737/66 mmhg, SpO2=96.0 %, Resp=12 B/min, Pain=0, Claritza=10, Mckeon=2 7:38:37 MD arrived. 7:38:44 Contrast Scanned 7:38:45 Immediate Presedation assesment performed by physician. 7:40:19 HR=56 bpm, XRQQ=911/69 mmhg, SpO2=96.0 %, Resp=14 B/min, Pain=0, Claritza=10, Mckeon=2 Time Out. Correct patient, correct procedure, correct physician, power injector loaded with cont rast with surgical team 7:44:28 present. Time Out Concurred by MD and individual staff in procedure. 7:45:12 2 mg VERSED given in lab by Mildred Albarran, RN in Left Forearm via Peripheral IV. Ordered by Dank Rankin. 7:45:18 HR=64 bpm, KKXO=092/76 mmhg, SpO2=97.0 %, Resp=8 B/min, Pain=0, Claritza=10, Mckeon=2 7:45:32 Case Start 7:45:35 Verbal Stimulation=2 Physical Stimulation=2 Airway=2 Respiration=2 TOTAL=8. (0=absent, 1=pozo ited, 2=present) 10 mL 1% XYLOCAINE given in lab by Mildred Albarran, RN in Right Groin via Subcutaneous. Ordered by Chucho 7:47:08 Dank. 7:50:09 Access site was Right Femoral Artery. 7:50:14 A SHEATH, FR6.5 PRELUDE 11CM FR 6.5 was advanced into the Fem Art (right) using the Percutan eous technique. A PIGTAIL ANG. 145 INFINITI CATHETER FR 6 was advanced over a wire. OMNIPAQUE, 350 MG, 100ML 100 ML was 7:50:19 used for injections. 7:50:23 HR=56 bpm, XDNE=740/65 mmhg, SpO2=95.0 %, Resp=17 B/min, Pain=0, Claritza=10, Mckeon=2 Recorded Pressure: LV, HR=53, Condition=Condition 1 7:52:23 (Left Ventricle) LV 104/2/9 7:52:38 The LV was injected at 10 cc/sec for a total of 30. OMNIPAQUE, 350 MG, 50ML 50ML used. Recorded Pressure: LV, Ao, HR=57, Condition=Condition 1 7:53:46 (Left Ventricle) LV 100/4/11, (Aorta) Ao 105/53/74 7:54:08 Catheter was removed A JL 5.0 INFINITI CATHETER FR 6 was advanced over a wire. OMNIPAQUE, 350 MG, 100ML 100ML was use d for 7:54:08 injections. 7:55:20 HR=54 bpm, ZOJG=055/62 mmhg, SpO2=95.0 %, Resp=15 B/min, Pain=0, Claritza=10, Mckeon=2 Recorded Pressure: Ao, HR=54, Condition=Condition 1 7:56:04 (Aorta) Ao 103/51/71 7:56:41 The LCA was injected and visualized at various angles. OMNIPAQUE, 350 MG, 100ML 100ML used. 7:59:22 Catheter was removed A 3DRC INFINITI CATHETER FR 6 was advanced over a wire. OMNIPAQUE, 350 MG, 100ML 100ML was use d for 7:59:23 injections. 8:00:23 HR=51 bpm, AYSI=830/61 mmhg, SpO2=96.0 %, Resp=15 B/min, Pain=0, Claritza=10, Mckeon=2 8:02:56 Catheter was removed 8:03:21 An injection in the Fem Art (right) was made through the SHEATH, FR6.5 PRELUDE 11CM FR 6.5 . 8:05:22 HR=58 bpm, ZSKJ=259/63 mmhg, SpO2=98.0 %, Resp=12 B/min, Pain=0, Claritza=10, Mckeon=2 8:06:10 ANGIOSEAL, FR6 VIP FR 6 placement in the Fem Art (right) 8:06:16 Case End 8:06:18 Sterile dressing applied to site 8:06:18 No case complications noted. 8:06:19 Cine recording checked. 8:06:20 Bedside Report will be given. 8:06:22 Implantable Device card placed in patient's chart. 8:06:23 Contrast Scanned 8:06:24 Verbal Stimulation=2 Physical Stimulation=2 Airway=2 Respiration=2 TOTAL=8. (0=absent, 1=l imited, 2=present) 8:06:33 A Left Heart Cath was performed. 8:09:19 Vitals capture stopped. 8:12:02 Patient moved to stretcher End Study - Contrast Media Used In Study Contrast Total Opened (mL) Total Used (mL) Total Wasted (mL) Omnipaque 100 100 0 End Study - Maximum Contrast Load Max Contrast Load (mL) 490.7 End Study - Radiation Exposure Fluoro Time (minutes) 2.3 End Study - Patient Disposition Complications Transferred To Interventional Outcome No It Generalist Holding No attempt made
--- NOTE | 2017-08-08 08:18 | CATHPROC ---
[employer] HIS Report Study Information Study Number Admission Scheduled Start Study Start [id number] Aug 08 2017 5:41AM 08/08/2017 Aug 08 2017 7:14AM [place] [facility] Cardiac Catheterization Admit Source Facility Department Other [facility] - Vulcanizing Press Operator Physician and Clinical Staff Initial Dank [place] [employer] Transit Operator Mildred Albarran,LORENZA Other cathlab, cathlab Recorder Kenny Wang RCIS(BS) ScrMinal Hernandez RCIS TECH2 Procedures Performed Procedure Location (Site) Vessel Name Angiogram LV LV Ventricle Coronary Angiograms LCA Left Coronary L Heart Cath Equipment Time Skill Training Program Coordinator Description Size Mfg Part Number Used/Scraped TRANSDUCER, TRUWAVE [id number] 07:15 GOMEZ AVELAR * Used W/STOCKCOCK *[id number] *[id number] *[id number] PIGTAIL ANG. 145 INFINITI [id number] CATHETER *[id number] 08:06 DAIG/[employer] ANGIOSEAL, FR6 VIP FR 6 Used *[id number] 07:15 MEDLINE INDUSTRIES PACK, CCL CUSTOM * Used *[id number] 07:15 MedEncentive PACER PEN, SKIN DUAL W/ RULER * Used *[id number] 07:15 Assembly SHEATH, FR6.5 PRELUDE 11CM FR 6.5 038ACT Used *[id number] 07:15 Assembly WIRE, 3MMJ .035 180CM 180CM Used *[id number] 07:15 NAMIC MANIFOLD, 4 PORT * Used *[id number] 07:15 NYCOMED OMNIPAQUE, 350 MG, 100ML 100ML [id number] Used 07:53 NYCOMED OMNIPAQUE, 350 MG, 50ML 50ML [id number] Used [id number] 07:15 [employer] MEDICAL BLANKET,WARM AIR CCL * Used *[id number] History: Current Medications Medication Dosage/Unit Route Frequency Last Date/Time Taken Statins (any) ASA History: Allergies Allergy Reaction No Known Allergies History: Risk Factors Family History of Hypertension Dyslipidemia Previous NM Previous Heart Failure Premature CAD Yes Yes No No No Prior Valve Prior PCI Prior CABG Surgery No No No Cerebrovascular Peripheral Artery Chronic Lung On Dialysis Diabetes Disease Disease Disease No No No Yes No History: Symptoms/Diagnosis Selection Items Chest pain History: Stress Tests Stress or Imaging Studies Performed No History: Other Disease Selection Items HTN History: Other Current Smoker No Labs Hgb (g/dl) Hct (%) WBC (l/cumm) Platelets (thousands) 11.60-17.00 35.00-51.00 4.00-11.00 150.00-450.00 14.0 41 6.9 172 Glucose (mg/dl) BUN (mg/dl) Creatinine (mg/dl) BUN:Creatinine (1:x) 74.00-106.00 7.00-18.00 0.50-1.30 10.00-20.00 99 16 0.9 17.8 Na (meq/l) K (meq/l) 136.00-145.00 3.50-5.10 142 3.5 INR (PTT:PT) 0.90-1.10 1 CPK-MB (ng/ML) 0.50-3.60 Not Drawn Medication Medication Total Dose (Bolus/Oral) Medication Total Dosage/Unit 1% XYLOCAINE 10 mL VERSED 2 mg Medications (Bolus/Oral) Medication Time Given Dosage/Unit Administered By Reason VERSED 08/08/2017 7:45:12 AM 2 mg Mildred Albarran 2 mg VERSED given in lab by Mildred Albarran RN in Left Forearm via Peripheral IV. Ordered by Dank Rankin. 1% XYLOCAINE 08/08/2017 7:47:08 AM 10 mL Mildred Albarran 10 mL 1% XYLOCAINE given in lab by Mildred Albarran RN in Right Groin via Subcutaneous. Ordered by Dank Aquino. Medication (Drip) Medication Time Given Dosage/Unit Concentration/Unit Diluent (ml) Solution IV Solutions 08/08/2017 7:14:06 AM 0 mL (IV) 500 NaCl .9 Patient arrived on IV Solutions given by cathlab, cathkevin in Left Forearm via Peripheral IV. Pump/Dri p Flow = 20 ml/hr using NaCl .9. Ordered by Dank Rankin. Initial Case Assessment Cardiovascular HR Rhythm Chest Pain 58 nsr 0 Edema Present Skin color Skin None Normal Warm Dry Circulatory - Right Pulses Dorsalis Pedis Femoral 2 2 Scale (0,1,2,3,4,d) Circulatory - Left Pulses Dorsalis Pedis Femoral 2 2 Scale (0,1,2,3,4,d) Neurological State Oriented to time-place- Alert Moves all extremities person Respiration - General Respiration Rate SpO2 (%) (B/min) 15 96 Chronological Log Time Study Chronological Log 7:13:53 Patient arrived via Bed. 7:13:54 Patient Name, D.O.B, / Armband Verified By R.N. 7:13:54 Consent signed by the physician and the patient and verified by the Vulcanizing Press Operator staff. 7:13:55 Pre-op and post- op instructions given; patient acknowledges understanding of instructions . 7:13:55 Verbal Stimulation=2 Physical Stimulation=2 Airway=2 Respiration=2 TOTAL=8. (0=absent, 1=l imited, 2=present) 7:13:56 Presedation assessment performed by Vulcanizing Press Operator RN. 7:13:57 Immediate Presedation assesment performed by physician. 7:13:58 Patient has been NPO for More than 6Hrs. 7:13:58 Skin Breakdown- none per patient 7:14:00 Patient Warmer Placed on the Table. 7:14:01 Disposable Defibrillator Pads Placed On Patient. 7:14:05 [place] Prominences Protected 7:14:06 A # 20 IV was noted in the Forearm (left). Grade = 0 Patient arrived on IV Solutions given by cathlab cathlab in Left Forearm via Peripheral IV. Pum p/Drip Flow = 20 ml/hr 7:14:06 using NaCl .9. Ordered by Dank Rankin. 7:14:07 History and physical on the chart or being dictated. Vitals capture started with the following parameters, Patient=Adult, Interval=5 min, Initial Pre uvzxb=603 mmHg, 7:19:44 Deflation Rate=5 mmHg, Cuff placed on Right Arm Assessment: Initial Case, HR=58 BPM, Rhythm=nsr, Chest Pain=0, Edema=None, Color=Normal, Skin = Warm, Dry Right Pulses: Jaylen Ped=2, Femoral=2 7:19:45 Left Pulses: Jaylen Ped=2, Femoral=2 Neurological: State=Alert, Ox3, OTOOLE Respiration: Resp=15 B/min, SpO2=96 % 7:19:57 Reference ECG taken 7:20:23 HR=58 bpm, BJYS=496/68 mmhg, SpO2=96.0 %, Resp=17 B/min, Pain=0, Claritza=10, Mckeon=2 7:25:20 HR=59 bpm, FOAF=109/70 mmhg, SpO2=97.0 %, Resp=16 B/min, Pain=0, Claritza=10, Mckeon=2 7:25:24 Right groin prepped with 2% chlorhexidine, and draped after a 3 min. waiting time. 7:29:12 MD paged 7:30:21 HR=55 bpm, GYPN=884/68 mmhg, SpO2=97.0 %, Resp=14 B/min, Pain=0, Claritza=10, Mckeon=2 7:30:54 Pressure channel 1 zeroed. 7:35:20 HR=54 bpm, MWCN=699/66 mmhg, SpO2=96.0 %, Resp=12 B/min, Pain=0, Claritza=10, Mckeon=2 7:38:37 MD arrived. 7:38:44 Contrast Scanned 7:38:45 Immediate Presedation assesment performed by physician. 7:40:19 HR=56 bpm, ZAWH=526/69 mmhg, SpO2=96.0 %, Resp=14 B/min, Pain=0, Claritza=10, Mckeon=2 Time Out. Correct patient, correct procedure, correct physician, power injector loaded with cont rast with surgical team 7:44:28 present. Time Out Concurred by MD and individual staff in procedure. 7:45:12 2 mg VERSED given in lab by Mildred Albarran, RN in Left Forearm via Peripheral IV. Ordered by Dank Rankin. 7:45:18 HR=64 bpm, XXRW=484/76 mmhg, SpO2=97.0 %, Resp=8 B/min, Pain=0, Claritza=10, Mckeon=2 7:45:32 Case Start 7:45:35 Verbal Stimulation=2 Physical Stimulation=2 Airway=2 Respiration=2 TOTAL=8. (0=absent, 1=pozo ited, 2=present) 10 mL 1% XYLOCAINE given in lab by Mildred Albarran, RN in Right Groin via Subcutaneous. Ordered by Chucho 7:47:08 Dank. 7:50:09 Access site was Right Femoral Artery. 7:50:14 A SHEATH, FR6.5 PRELUDE 11CM FR 6.5 was advanced into the Fem Art (right) using the Percutan eous technique. A PIGTAIL ANG. 145 INFINITI CATHETER FR 6 was advanced over a wire. OMNIPAQUE, 350 MG, 100ML 100 ML was 7:50:19 used for injections. 7:50:23 HR=56 bpm, ODQK=249/65 mmhg, SpO2=95.0 %, Resp=17 B/min, Pain=0, Claritza=10, Mckeon=2 Recorded Pressure: LV, HR=53, Condition=Condition 1 7:52:23 (Left Ventricle) LV 104/2/9 7:52:38 The LV was injected at 10 cc/sec for a total of 30. OMNIPAQUE, 350 MG, 50ML 50ML used. Recorded Pressure: LV, Ao, HR=57, Condition=Condition 1 7:53:46 (Left Ventricle) LV 100/4/11, (Aorta) Ao 105/53/74 7:54:08 Catheter was removed A JL 5.0 INFINITI CATHETER FR 6 was advanced over a wire. OMNIPAQUE, 350 MG, 100ML 100ML was use d for 7:54:08 injections. 7:55:20 HR=54 bpm, FVYI=645/62 mmhg, SpO2=95.0 %, Resp=15 B/min, Pain=0, Claritza=10, Mckeon=2 Recorded Pressure: Ao, HR=54, Condition=Condition 1 7:56:04 (Aorta) Ao 103/51/71 7:56:41 The LCA was injected and visualized at various angles. OMNIPAQUE, 350 MG, 100ML 100ML used. 7:59:22 Catheter was removed A 3DRC INFINITI CATHETER FR 6 was advanced over a wire. OMNIPAQUE, 350 MG, 100ML 100ML was use d for 7:59:23 injections. 8:00:23 HR=51 bpm, EQIC=809/61 mmhg, SpO2=96.0 %, Resp=15 B/min, Pain=0, Claritza=10, Mckeon=2 8:02:56 Catheter was removed 8:03:21 An injection in the Fem Art (right) was made through the SHEATH, FR6.5 PRELUDE 11CM FR 6.5 . 8:05:22 HR=58 bpm, GUXE=010/63 mmhg, SpO2=98.0 %, Resp=12 B/min, Pain=0, Claritza=10, Mckeon=2 8:06:10 ANGIOSEAL, FR6 VIP FR 6 placement in the Fem Art (right) 8:06:16 Case End 8:06:18 Sterile dressing applied to site 8:06:18 No case complications noted. 8:06:19 Cine recording checked. 8:06:20 Bedside Report will be given. 8:06:22 Implantable Device card placed in patient's chart. 8:06:23 Contrast Scanned 8:06:24 Verbal Stimulation=2 Physical Stimulation=2 Airway=2 Respiration=2 TOTAL=8. (0=absent, 1=l imited, 2=present) 8:06:33 A Left Heart Cath was performed. 8:09:19 Vitals capture stopped. 8:12:02 Patient moved to stretcher End Study - Contrast Media Used In Study Contrast Total Opened (mL) Total Used (mL) Total Wasted (mL) Omnipaque 100 100 0 End Study - Maximum Contrast Load Max Contrast Load (mL) 490.7 End Study - Radiation Exposure Fluoro Time (minutes) 2.3 End Study - Patient Disposition Complications Transferred To Interventional Outcome No Vulcanizing Press Operator Holding No attempt made
[2017-08-08] MEDS ORDERED: SODIUM CHLOR 0.9% 1000 ML INJ 1,000 ML IV SCH (08:21)
[2017-08-08] MEDS ORDERED: oxyCODONE/ACETAMINOPHEN 5 MG/325 MG TAB PO PRN (08:30)
[2017-08-08] MEDS ORDERED: MISC INFORMATION XX ONE (08:30)
[2017-08-08] MEDS ORDERED: BACITRACIN OINT 0.9 GM PKT TOP ONE (08:30)
[2017-08-08] MEDS ORDERED: ONDANSETRON HCL 4 MG/2 ML VIAL IV PUSH PRN (08:30)
[2017-08-08 08:33] LABS: CHOLESTEROL/ HDL RATIO 2.65 RATIO; HDL CHOLESTEROL 52.3 MG/DL (40.0-60.0)
--- NOTE | 2017-08-08 08:59 | MA ---
cc: REECE FLORES M.D., JOSHUA R. M.D. DATE 08/08/2017 PROCEDURE PERFORMED Left heart catheterization, left ventriculography, coronary angiography, right femoral angiography with Angio-Seal placement. BRIEF HISTORY Dago Bolton is an 82-year-old man who came to see me for chest discomfort. He subsequently underwent a nuclear stress test which showed no evidence for ischemia. He has continued to have symptoms of not feeling well. I did a coronary CTA which suggested calcified plaque in the proximal LAD that might be hemodynamically significant. Cardiac catheterization was performed to define his anatomy. DESCRIPTION OF PROCEDURE The patient was brought to the cardiac clinical laboratory scientist in a fasting state. The right groin was prepped and draped in sterile fashion. Using 1% lidocaine for local anesthesia, a 6.5-Micronesian sheath was inserted in the right femoral artery. Left ventricular pressure was then recorded using an angled pigtail catheter, followed by left ventriculography and then a pullback. Coronary angiography was then performed using a left 5-Marlene for left coronary artery and a 3DRC for the right coronary artery. After careful study of the films it was elected to treat him medically. Angiography was then obtained of the right femoral artery via the sheath, followed by uncomplicated Angio-Seal placement with good hemostasis. There were no complications. The patient tolerated the procedure well. He received a total of 2 mg of Versed for additional sedation at the start of the procedure. Estimated blood loss was only 5 cc. FINDINGS I. HEMODYNAMICS Please see clinical laboratory scientist data flow sheet. Hemodynamics were unremarkable and there was no aortic valve gradient. II. LEFT VENTRICULOGRAPHY Left ventriculography reveals a symmetrically romie left ventricle. Estimated ejection fraction is 60%. III. CORONARY ANGIOGRAPHY The left main coronary artery appears normal. The left anterior descending artery has calcified proximal disease starting right where the first septal health researcher branch comes off and extending past the origin of the major diagonal. Estimated stenosis in the LAD is about 50%. Further down the mid-LAD near the origin of the second diagonal branch the LAD itself has a 30% stenosis. The second diagonal branch is not stenosed. The first diagonal branch has a proximal 50-60% stenosis. The circumflex artery has one major obtuse marginal branch and proximally this branch has 40-50% smooth plaquing. The right coronary artery is large and dominant and has about 40% ostial disease. CONCLUSIONS 1. Normal hemodynamics. 2. Normal left ventricular function. 3. Three-vessel coronary artery disease but none of the lesions appear severe enough to warrant intervention. RECOMMENDATIONS 1. Medical management. 2. Lipid profile is pending. He is on 20 mg of simvastatin and depending on the lipid profile I may be increasing that to 40 or 80 of atorvastatin or of 20 to 40 of rosuvastatin. MD STIVEN Do/SSB /8:18 AM /9:21 AM
--- NOTE | 2017-08-08 08:59 | MA ---
cc: REECE FLORES M.D., JOSHUA R. M.D. DATE 08/08/2017 PROCEDURE PERFORMED Left heart catheterization, left ventriculography, coronary angiography, right femoral angiography with Angio-Seal placement. BRIEF HISTORY Dago Bolton is an 82-year-old man who came to see me for chest discomfort. He subsequently underwent a nuclear stress test which showed no evidence for ischemia. He has continued to have symptoms of not feeling well. I did a coronary CTA which suggested calcified plaque in the proximal LAD that might be hemodynamically significant. Cardiac catheterization was performed to define his anatomy. DESCRIPTION OF PROCEDURE The patient was brought to the cardiac dental laboratory manager in a fasting state. The right groin was prepped and draped in sterile fashion. Using 1% lidocaine for local anesthesia, a 6.5-Maldivian sheath was inserted in the right femoral artery. Left ventricular pressure was then recorded using an angled pigtail catheter, followed by left ventriculography and then a pullback. Coronary angiography was then performed using a left 5-Marlene for left coronary artery and a 3DRC for the right coronary artery. After careful study of the films it was elected to treat him medically. Angiography was then obtained of the right femoral artery via the sheath, followed by uncomplicated Angio-Seal placement with good hemostasis. There were no complications. The patient tolerated the procedure well. He received a total of 2 mg of Versed for additional sedation at the start of the procedure. Estimated blood loss was only 5 cc. FINDINGS I. HEMODYNAMICS Please see dental laboratory manager data flow sheet. Hemodynamics were unremarkable and there was no aortic valve gradient. II. LEFT VENTRICULOGRAPHY Left ventriculography reveals a symmetrically romie left ventricle. Estimated ejection fraction is 60%. III. CORONARY ANGIOGRAPHY The left main coronary artery appears normal. The left anterior descending artery has calcified proximal disease starting right where the first septal director telehealth branch comes off and extending past the origin of the major diagonal. Estimated stenosis in the LAD is about 50%. Further down the mid-LAD near the origin of the second diagonal branch the LAD itself has a 30% stenosis. The second diagonal branch is not stenosed. The first diagonal branch has a proximal 50-60% stenosis. The circumflex artery has one major obtuse marginal branch and proximally this branch has 40-50% smooth plaquing. The right coronary artery is large and dominant and has about 40% ostial disease. CONCLUSIONS 1. Normal hemodynamics. 2. Normal left ventricular function. 3. Three-vessel coronary artery disease but none of the lesions appear severe enough to warrant intervention. RECOMMENDATIONS 1. Medical management. 2. Lipid profile is pending. He is on 20 mg of simvastatin and depending on the lipid profile I may be increasing that to 40 or 80 of atorvastatin or of 20 to 40 of rosuvastatin. MD STIVEN Do/SSB /8:18 AM /9:21 AM
--- NOTE | 2017-08-08 08:59 | MA ---
cc: REECE FLORES M.D., JOSHUA R. M.D. DATE 08/08/2017 PROCEDURE PERFORMED Left heart catheterization, left ventriculography, coronary angiography, right femoral angiography with Angio-Seal placement. BRIEF HISTORY Dago Bolton is an 82-year-old man who came to see me for chest discomfort. He subsequently underwent a nuclear stress test which showed no evidence for ischemia. He has continued to have symptoms of not feeling well. I did a coronary CTA which suggested calcified plaque in the proximal LAD that might be hemodynamically significant. Cardiac catheterization was performed to define his anatomy. DESCRIPTION OF PROCEDURE The patient was brought to the cardiac laboratory tech in a fasting state. The right groin was prepped and draped in sterile fashion. Using 1% lidocaine for local anesthesia, a 6.5-Cuban sheath was inserted in the right femoral artery. Left ventricular pressure was then recorded using an angled pigtail catheter, followed by left ventriculography and then a pullback. Coronary angiography was then performed using a left 5-Marlene for left coronary artery and a 3DRC for the right coronary artery. After careful study of the films it was elected to treat him medically. Angiography was then obtained of the right femoral artery via the sheath, followed by uncomplicated Angio-Seal placement with good hemostasis. There were no complications. The patient tolerated the procedure well. He received a total of 2 mg of Versed for additional sedation at the start of the procedure. Estimated blood loss was only 5 cc. FINDINGS I. HEMODYNAMICS Please see laboratory tech data flow sheet. Hemodynamics were unremarkable and there was no aortic valve gradient. II. LEFT VENTRICULOGRAPHY Left ventriculography reveals a symmetrically romie left ventricle. Estimated ejection fraction is 60%. III. CORONARY ANGIOGRAPHY The left main coronary artery appears normal. The left anterior descending artery has calcified proximal disease starting right where the first septal human resources temp branch comes off and extending past the origin of the major diagonal. Estimated stenosis in the LAD is about 50%. Further down the mid-LAD near the origin of the second diagonal branch the LAD itself has a 30% stenosis. The second diagonal branch is not stenosed. The first diagonal branch has a proximal 50-60% stenosis. The circumflex artery has one major obtuse marginal branch and proximally this branch has 40-50% smooth plaquing. The right coronary artery is large and dominant and has about 40% ostial disease. CONCLUSIONS 1. Normal hemodynamics. 2. Normal left ventricular function. 3. Three-vessel coronary artery disease but none of the lesions appear severe enough to warrant intervention. RECOMMENDATIONS 1. Medical management. 2. Lipid profile is pending. He is on 20 mg of simvastatin and depending on the lipid profile I may be increasing that to 40 or 80 of atorvastatin or of 20 to 40 of rosuvastatin. MD STIVEN Do/SSB /8:18 AM /9:21 AM
--- NOTE | 2017-08-08 18:12 | EKG ---
Date Performed: 08/08/2017 Time Performed: 06:25:48 PTAGE: 82 years EKG: Sinus bradycardia. Inferior T wave changes are nonspecific Borderline ECG Compared to prior tracing no significant change PREVIOUS TRACING : 07/01/2017 04.22 DOCTOR: Catrachita Lagos Interpretating Date/Time 08/08/2017 18:10:55
== END 2017-08-08 13:46 | disposition home or self-care (01) ==
LOC: HDOC 05:41 → HDIC 05:42 → HDOC 13:46
PROVIDERS: ATTEND Internal Medicine Cardiovascular Disease
DX: I25.10 Atherosclerotic heart disease of native coronary artery without angina pectoris (principal); I10 Essential (primary) hypertension; I48.0 Paroxysmal atrial fibrillation; I49.3 Ventricular premature depolarization; Z79.01 Long term (current) use of anticoagulants
CPT/HCPCS: 80048; 80061; 85025; 85610; 85730; 93005; 93458; C1769; C1893; J2250; J7030; Q9967

== ENCOUNTER 2017-08-31 05:29 | Emergency (ER) | payer MEDICARE ==
[~2017-08-31] VITALS: Ht 182.9 cm; Wt 88.5 kg
[~2017-08-31 05:29] MED LIST changes: -GABA300C5 PO; -HYDR12.56 PO; +ISOS30TA3 PO; +TRIAM.1%T TOPICAL
[2017-08-31 05:32] VITALS: BP 162/72; PULSE 71; RESP 20; TEMP 97.8; O2SAT 97
[2017-08-31] MEDS ORDERED: SODIUM CHLORID 0.9% 500 ML INJ 500 ML IV ONE (05:45)
[2017-08-31] MEDS ORDERED: SODIUM CHLORIDE 0.9% FLUSH 10 ML FLUSH IVF PRN (05:45)
[2017-08-31 05:47] VITALS: RESP 16; O2SAT 97
--- NOTE | 2017-08-31 05:51 | PD ---
HPI Chief Complaint: palpitations Time Seen by Provider: 05:34 Travel History International Travel<30 days: No Contact w/Intl Traveler<30days: No Traveled to known affect area: No History of Present Illness HPI Patient is an 82-year-old male with history of hypertension, atrial fibrillation , hyperlipidemia, presents to emergency room with complaints of heart palpitations. Patient reports that he was admitted to the hospital 6 weeks ago and was diagnosed with new onset atrial fibrillation. Patient reports that he does see Dr. Dank Rankin as an outpatient, he was started on Eliquis. Patient reports that over the past 12 hours, he noticed that his blood pressure was elevated. Patient reports that he has been checking his blood pressure since 6 PM, reports that his maximum systolic blood pressure was 170 which is abnormal for him. Patient reports that he has been checking his blood pressure every 30 minutes and noted it to be high. Patient reports that since 6 PM last night, having increased palpitations and sensation of lightheadedness with slight nausea. Patient denies any overt chest pain at this time. Patient denies any shortness of breath. Patient reports that he wanted to come to the emergency room for evaluation as up until 6 weeks ago, he had no heart conditions. Patient denies any cough or congestion, denies any headache or dizziness at this time. Patient with no abdominal pain, no other complaints. 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) Psychiatric: No Reproductive: No Respiratory: Yes (ASTHMA- HX) Thyroid Disease: No Past Surgical History Abdominal Surgery: Yes (APPENDECTOMY- RIGHT INGUINAL HERNIA REPAIR) Appendectomy: Yes Body Medical Devices: NONE Cardiac Surgery: No Ear Surgery: No Endocrine Surgery: No Eye Surgery: Yes (LEFT CATARACT) Genitourinary Surgery: No Joint Replacement: No Oral Surgery: Yes (T&A; SINUS SX) Pacemaker: No Thoracic Surgery: No Tonsillectomy: Yes Other Surgery: Yes Social History Alcohol Use: Yes (OCC) Tobacco Use: No Substance Use: No Allergies-Medications (Allergen,Severity, Reaction): Coded Allergies: No Known Allergies (Unverified Allergy, Unknown, 08/31/17) Reported Meds & Prescriptions Reported Meds & Active Scripts Active Reported Rosuvastatin (Rosuvastatin Calcium) 20 Mg Tab 20 Mg PO DAILY Eliquis (Apixaban) 5 Mg Tab 5 Mg PO BID Diltiazem ER 24 HR 180 Mg [place] 180 Mg PO DAILY Temazepam 30 Mg Cap 30 Mg PO HS PRN Flonase Nasal [place] (Fluticasone Nasal [place]) 50 Mcg/Act [place] 1 [place] EACH NARE PRN Nexium (Esomeprazole DR) 40 Mg Capdr 40 Mg PO EVERY OTHER DAY Review of Systems General / Constitutional: No: Fever Eyes: No: Visual changes HENT: Positive: Lightheadedness, No: Headaches Cardiovascular: Positive: Palpitations, No: Chest Pain or Discomfort Respiratory: No: Cough, Shortness of Breath Gastrointestinal: Positive: Nausea, No: Vomiting, Diarrhea, Abdominal Pain Genitourinary: No: Dysuria Musculoskeletal: No: Pain Skin: No Rash Neurologic: No: Weakness, Dizziness, Syncope, Headache Psychiatric: No: Depression Endocrine: No: Polydipsia Hematologic/Lymphatic: No: Easy Bruising Physical Exam Narrative GENERAL: Mild distress SKIN: Focused skin assessment warm/dry. HEAD: Atraumatic. Normocephalic. EYES: Pupils equal and round. No scleral icterus. No injection or drainage. ENT: No nasal bleeding or discharge. Mucous membranes pink and moist. NECK: Trachea midline. No JVD. CARDIOVASCULAR: Irregular rate and rhythm. No murmur appreciated. RESPIRATORY: No accessory muscle use. Clear to auscultation. Breath sounds equal bilaterally. GASTROINTESTINAL: Abdomen soft, non-tender, nondistended. Hepatic and splenic margins not palpable. MUSCULOSKELETAL: No obvious deformities. No clubbing. No cyanosis. No edema. NEUROLOGICAL: Awake and alert. No obvious cranial nerve deficits. Motor grossly within normal limits. Normal speech. PSYCHIATRIC: Anxious mood and affect; insight and judgment normal. Data Data Last Documented VS Vital Signs Date Time Temp Pulse Resp B/P (MAP) Pulse Ox O2 Delivery O2 Flow Rate FiO2 08/31/17 05:47 16 97 Room Air 08/31/17 05:32 97.8 71 162/72 (102) Orders Orders Electrocardiogram (08/31/17 05:41) B-Type Natriuretic Peptide (08/31/17 05:41) Ckmb (Isoenzyme) Profile (08/31/17 05:41) Complete Blood Count With Diff (08/31/17 05:41) Comprehensive Metabolic Panel (08/31/17 05:41) Magnesium (Mg) (08/31/17 05:41) Prothrombin Time / Inr (Pt) (08/31/17 05:41) Act Partial Throm Time (Ptt) (08/31/17 05:41) Troponin I (08/31/17 05:41) Chest, Single Ap (08/31/17 05:41) Ecg Monitoring (08/31/17 05:41) Iv Access Insert/Monitor (08/31/17 05:41) Oximetry (08/31/17 05:41) Sodium Chloride 0.9% Flush (Ns Flush) (08/31/17 05:45) Sodium Chlorid 0.9% 500 Ml Inj (Ns 500 M (08/31/17 05:45) Urinalysis - C+S If Indicated (08/31/17 05:43) Labs Laboratory Tests Test 08/31/17 05:44 08/31/17 06:00 White Blood Count 7.1 TH/MM3 Red Blood Count 4.66 MIL/MM3 Hemoglobin 14.6 GM/DL Hematocrit 43.7 % Mean Corpuscular Volume 93.7 FL Mean Corpuscular Hemoglobin 31.2 PG Mean Corpuscular Hemoglobin Concent 33.3 % Red Cell Distribution Width 13.0 % Platelet Count 166 TH/MM3 Mean Platelet Volume 10.2 FL Neutrophils (%) (Auto) 72.3 % Lymphocytes (%) (Auto) 19.8 % Monocytes (%) (Auto) 5.9 % Eosinophils (%) (Auto) 1.6 % Basophils (%) (Auto) 0.4 % Neutrophils # (Auto) 5.2 TH/MM3 Lymphocytes # (Auto) 1.4 TH/MM3 Monocytes # (Auto) 0.4 TH/MM3 Eosinophils # (Auto) 0.1 TH/MM3 Basophils # (Auto) 0.0 TH/MM3 CBC Comment DIFF FINAL Differential Comment Prothrombin Time 11.9 SEC Prothromb Time International Ratio 1.1 RATIO Activated Partial Thromboplast Time 31.7 SEC Blood Urea Nitrogen 17 MG/DL Creatinine 0.95 MG/DL Random Glucose 109 MG/DL Total Protein 6.9 GM/DL Albumin 3.8 GM/DL Calcium Level 8.9 MG/DL Magnesium Level 2.0 MG/DL Alkaline Phosphatase 91 U/L Aspartate Amino Transf (AST/SGOT) 27 U/L Alanine Aminotransferase (ALT/SGPT) 58 U/L Total Bilirubin 0.6 MG/DL Sodium Level 143 MEQ/L Potassium Level 3.6 MEQ/L Chloride Level 109 MEQ/L Carbon Dioxide Level 25.4 MEQ/L Anion Gap 9 MEQ/L Estimat Glomerular Filtration Rate 76 ML/MIN Total Creatine Kinase 54 U/L Troponin I LESS THAN 0.02 NG/ML B-Type Natriuretic Peptide 102 PG/ML Urine Color LIGHT-YELLOW Urine Turbidity HAZY Urine pH 6.5 Urine Specific [place] 1.011 Urine Protein NEG mg/dL Urine Glucose (UA) NEG mg/dL Urine Ketones TRACE mg/dL Urine Occult Blood SMALL Urine Nitrite NEG Urine Bilirubin NEG Urine Urobilinogen LESS THAN 2.0 MG/DL Urine Leukocyte Esterase NEG Urine RBC 12 /hpf Urine WBC 2 /hpf Microscopic Urinalysis Comment CULT NOT INDICATED MDM Medical Decision Making Medical Screen Exam Complete: Yes Emergency Medical Condition: Yes Medical Record Reviewed: Yes Interpretation(s) EKG at 0541: A. fib at 69bpm, qt/qtc: 402/422, no acute st or t wave changes Vital Signs Date Time Temp Pulse Resp B/P (MAP) Pulse Ox O2 Delivery O2 Flow Rate FiO2 08/31/17 05:32 97.8 71 20 162/72 (236) 97 Differential Diagnosis Paroxysmal atrial fibrillation, arrhythmia, accelerated hypertension, electrolyte abnormality, anxiety reaction Narrative Course 82-year-old male with history of atrial fibrillation, hypertension, hyperlipidemia currently taking Eliquis, complaints of palpitations as well as high blood pressure and sensation of lightheadedness which has been ongoing for the past 12 hours. Patient denies any chest pain or shortness breath at this time, patient was concerned as he was recently diagnosed with atrial fibrillation and hypertension 6 weeks ago, he did have an outpatient follow-up with Dr. Rankin 2 weeks ago and was told that he was doing well and needs to follow-up in 6 months at his office. During the course of the patients emergency department visit, the patients history, examination, and differential diagnosis were reviewed with the patient. The patient was placed on a cafeteria monitor with oximetry and frequent blood pressure monitoring. The patient had a 20-gauge IV access obtained and blood work sent for analysis. The patient was initially provided IV fluids and reassurance. Primary medical records were reviewed, patient did have a cardiac catheterization on August 08, 2017 which showed normal hemodynamics, normal left ventricular function, 3 vessel coronary artery disease but none of the lesions appeared severe enough to work intervention. Patient was recommended for medical management at that time. Vital Signs Date Time Temp Pulse Resp B/P (MAP) Pulse Ox O2 Delivery O2 Flow Rate FiO2 08/31/17 05:32 97.8 71 20 162/72 (102) 97 Patient's vital signs are stable this time, patient with no chest pain or shortness of breath, plan to obtain labs and monitor on cafeteria monitor The patients laboratory studies were reviewed and remarkable for: CBC & BMP Diagram 08/31/17 05:44 Total Protein 6.9, Albumin 3.8, Calcium Level 8.9, Magnesium Level 2.0, Alkaline Phosphatase 91, Aspartate Amino Transf (AST/SGOT) 27, Alanine Aminotransferase (ALT/SGPT) 58, Total Bilirubin 0.6 trop less than 0.02, bnp 102 Radiology studies were reviewed and remarkable for: Last Impressions Chest X-Ray 08/31/17 0541 Signed Impressions: Service Date/Time: , August 31, 2017 04:10 - CONCLUSION: Mild left base atelectasis. Zane Raya MD Patient reevaluated, patient feeling much better at this time. BP now 149/71. Patient's palpitations most likely from his paroxysmal atrial fibrillation as he currently is in atrial fibrillation at this time. Patient is rate controlled , currently on Eliquis as well as diltiazem. Patient is feeling much better at this time after much reassurance. I reviewed all labs and all studies with patient in detail, patient will follow-up with Dr. Rankin the office, he will return to the emergency room as needed. Diagnosis Primary Impression: Atrial fibrillation Qualified Codes: I48.0 - Paroxysmal atrial fibrillation Additional Impressions: Heart palpitations Hypertension Qualified Codes: I10 - Essential (primary) hypertension Patient Instructions: General Instructions Additional Instructions: Please provide patient with a copy of their lab work and studies at discharge* * Please follow up with your primary care doctor in 2-3 days Return to the ER if symptoms worsen or progress Return to the ER as needed Please follow up with Dr. Rankin in office as instructed Disposition: 01 DISCHARGE HOME Condition: Stable Yvonne Isbell DO Aug 31, 2017 05:51
[2017-08-31] MEDS ORDERED: ROSU1TAB8 PO (05:52)
[2017-08-31 06:06] LABS: AUTOMATED NEUTROPHIL # 5.2 TH/MM3 (1.8-7.7); BASOPHIL % 0.4 % (0.0-2.0); EOSINOPHIL # 0.1 TH/MM3 (0-0.4); EOSINOPHIL % 1.6 % (0.0-4.0); HEMATOCRIT 43.7 % (39.0-51.0); HEMO FLAGS DIFF FINAL; LYMPH % 19.8 % (9.0-44.0); LYMPHOCYTE # 1.4 TH/MM3 (1.0-4.8); MEAN CELL VOLUME 93.7 FL (80.0-100.0); MEAN CORPUSCULAR HEMOGLOBIN 31.2 PG (27.0-34.0); MEAN CORPUSCULAR HGB CONC 33.3 % (32.0-36.0); MONO % 5.9 % (0.0-8.0); NEUT % 72.3 % (16.0-70.0); PLATELET COUNT 166 TH/MM3 (150-450); RED BLOOD COUNT 4.66 MIL/MM3 (4.50-5.90); WHITE BLOOD COUNT 7.1 TH/MM3 (4.0-11.0)
[2017-08-31 06:18] LABS: APTT (PATIENT) 31.7 SEC (24.3-30.1); INTERNATIONAL NORMALIZED RATIO 1.1 RATIO; PROTHROMBIN TIME - PATIENT 11.9 SEC (9.8-11.6)
[2017-08-31 06:22] LABS: BLOOD, URINE SMALL (NEG); COMMENT (UR) CULT NOT INDICATED; CULTURE IF INDICATED CULT NOT INDICATED; GLUCOSE,URINE NEG (NEG); KETONE, URINE TRACE mg/dL (NEG); NITRITE,URINE NEG (NEG); PH, URINE 6.5 (5.0-8.5); URINE COLOR LIGHT-YELLOW (YELLW/STRAW)
--- NOTE | 2017-08-31 06:23 | RADRPT ---
EXAM DATE/TIME: 08/31/2017 04:10 [facility] COMPARISON: CT THORAX W CONTRAST, July 01, 2017, 7:54. INDICATIONS : Chest pain MEDICAL HISTORY : None. SURGICAL HISTORY : None. ENCOUNTER: Initial ACUITY: 1 day PAIN SCORE: 7/10 LOCATION: Bilateral chest FINDINGS: There is mild left base atelectasis. No pleural effusion seen. No pneumothorax. Heart size stable, normal. CONCLUSION: Mild left base atelectasis. Zane Raya MD on August 31, 2017 at 6:21 Board Certified Radiologist. This report was verified electronically.
[2017-08-31 06:29] LABS: ALT (GPT) 58 U/L (12-78); ANION GAP 9 MEQ/L (5-15); AST (GOT) 27 U/L (15-37); BICARBONATE 25.4 MEQ/L (21.0-32.0); BLOOD UREA NITROGEN 17 MG/DL (7-18); CHLORIDE 109 MEQ/L (98-107); GLOMERULAR FILTRATION RATE 76 ML/MIN (>89); POTASSIUM 3.6 MEQ/L (3.5-5.1); SODIUM (NA) 143 MEQ/L (136-145)
[2017-08-31 06:34] LABS: ALKALINE PHOSPHATASE 91 U/L (45-117); TOTAL BILIRUBIN ADULT 0.6 MG/DL (0.2-1.0)
[2017-08-31 06:35] LABS: CREATINE KINASE 54 U/L (39-308)
[2017-08-31 06:47] VITALS: BP 149/71
--- NOTE | 2017-08-31 10:25 | EKG ---
Date Performed: 08/31/2017 Time Performed: 05:41:13 PTAGE: 82 years EKG: ATRIAL FIBRILLATION ABNORMAL RHYTHM ECG PREVIOUS TRACING : 08/08/2017 06.25 DOCTOR: Chris Chisholm Interpretating Date/Time 08/31/2017 10:23:49
== END 2017-08-31 07:17 | disposition home or self-care (01) ==
LOC: NEPE 05:29
DX: I48.91 Unspecified atrial fibrillation (principal); R00.2 Palpitations; R94.31 Abnormal electrocardiogram [ECG] [EKG]; J98.11 Atelectasis; I10 Essential (primary) hypertension; E78.5 Hyperlipidemia, unspecified; R42 Dizziness and giddiness; K21.9 Gastro-esophageal reflux disease without esophagitis; J45.909 Unspecified asthma, uncomplicated
CPT/HCPCS: 71010; 80053; 81001; 82550; 83735; 83880; 84484; 85025; 85610; 85730; 93005; 99285; J7040